=== PATIENT | female | born 1925 | race Caucasian/White ===

== ENCOUNTER → 2016-11-22 | Outpatient (CLI) | payer OTHER ==
[~2016-11-22] MED LIST: C-10001000 MG PO; CALCIUM 500 +1 EAC5 PO; COLACE100 MG PO; COUMADIN 1MG TAB1 M1 PO; COUMADIN 3 MG TA3 M1 PO; DENAVIR1.5 GM; FUROSEMIDE 20 M20 MG PO; HYDROCODONE-AP1 EAC6 PO; KEFLEX500 MG PO; LASIX 40 MG TAB40 M2 PO; METOPROLOL SUCC50 MG PO; MIRALAX17 GM PO; MUCINEX TA600 MG/TA2 PO; MULTAQ 400 MG400 MG PO; PACERONE 200 M200 M1 PO; POTASSIUM20 PO; PULMICORT0.5 MG/22 INH; SENNA PO; TOPROL XL50 MG PO; TYLENOL325 MG PO; XOPENEX 0.63 MG/3 M1 IH; XOPENEX0.63 MG/3 INH; [UNRECOGNIZED DRUG - OTHER]
== END ==
LOC: RAD 11:10
DX: J45.909 Unspecified asthma, uncomplicated (principal); R06.02 Shortness of breath; I50.9 Heart failure, unspecified; J81.1 Chronic pulmonary edema; M41.9 Scoliosis, unspecified; R91.8 Other nonspecific abnormal finding of lung field